=== PATIENT | female | born 2000 | race Caucasian/White ===

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

== ENCOUNTER 2019-09-22 16:18 | Emergency (ER) | payer OTHER ==
[2019-09-22 17:12] VITALS: BP 120/64; PULSE 114; TEMP 98.3; BMI 25.7
--- NOTE | 2019-09-22 17:14 | PDOC ---
Rapid Medical Evaluation Chief Complaint: Headache Time Seen by Provider: 09/22/19 17:05 Medical Evaluation: Allergies Allergy/AdvReac Type Severity Reaction Status Date / Time No Known Allergies Allergy Verified 09/22/19 17:05 09/22/19 17:06 I have performed a brief in-person evaluation of this patient. The patient presents with a chief complaint of:URI and MORENO Pertinent physical exam findings:vss I have ordered the following:nothing The patient will proceed to the ED for further evaluation. Discharge Disposition - Diagnosis URI (upper respiratory infection) Qualifiers: URI type: unspecified viral URI Qualified Code(s): J06.9 - Acute upper respiratory infection, unspecified - Referrals - Patient Instructions - Post Discharge Activity
--- NOTE | 2019-09-22 17:35 | PDOC ---
History of Present Illness - General Chief Complaint: Headache Stated Complaint: HEADACHE Time Seen by Provider: 09/22/19 17:05 - History of Present Illness Initial Comments: 09/22/19 17:34 19-year-old female without comorbidities presents with flulike symptoms x2 days positive contacts at home Past History - Past Medical History Allergies/Adverse Reactions: Allergies Allergy/AdvReac Type Severity Reaction Status Date / Time No Known Allergies Allergy Verified 09/22/19 17:05 Home Medications: Ambulatory Orders One Tablet 1 tablet PO DAILY 04/03/18 Oseltamivir Phosphate [Tamiflu] 75 mg PO BID #10 capsule 09/22/19 Asthma: No Cancer: No Cardiac Disorders: No COPD: No Diabetes: No HTN: No Seizures: No Thyroid Disease: No - Psycho Social/Smoking Cessation Hx Smoking History: Never smoked Have you smoked in the past 12 months: No Information on smoking cessation initiated: No Hx Alcohol Use: No Drug/Substance Use Hx: No Substance Use Type: None Hx Substance Use Treatment: No Review of Systems - Review of Systems Constitutional: Yes: Fever HEENTM: Yes: Nose Congestion Respiratory: Yes: Cough *Physical Exam - Vital Signs Last Vital Signs Temp Pulse Resp BP Pulse Ox 98.3 F 114 H 16 120/64 100 09/22/19 17:05 09/22/19 17:05 09/22/19 17:05 09/22/19 17:05 09/22/19 17:05 - Physical Exam 09/22/19 17:34 GENERAL: The patient is awake, alert, and fully oriented, in no acute distress. HEAD: Normal with no signs of trauma. EYES: sclera anicteric, conjunctiva clear. ENT: Ears normal tympanic membranes normal oropharynx clear uvula midline NECK: Normal range of motion LUNGS: Breath sounds equal, clear to auscultation bilaterally. No wheezes, and no crackles. HEART: S1 and S2 without murmur, rub or gallop. ABDOMEN: Soft, nontender, normoactive bowel sounds. No guarding, no rebound. No masses. EXTREMITIES: Normal range of motion, no edema. No clubbing or cyanosis. No cords, erythema, or tenderness. NEUROLOGICAL: Cranial nerves II through XII grossly intact. PSYCH: Normal mood, normal affect. SKIN: Warm, Dry, normal turgor, no rashes or lesions noted. Medical Decision Making - Medical Decision Making 09/22/19 17:34 We will treat presumptive flu with Tamiflu Discharge - Discharge Information Problems reviewed: Yes Clinical Impression/Diagnosis: Influenza-like illness URI (upper respiratory infection) Qualifiers: URI type: unspecified viral URI Qualified Code(s): J06.9 - Acute upper respiratory infection, unspecified Condition: Stable Disposition: HOME - Admission No - Follow up/Referral Referrals: Gayle Hale MD [Staff Physician] - - Patient Discharge Instructions Additional Instructions: Tylenol Motrin as directed for fever and body aches. Return to the emergency room for worsening symptoms and without fail follow-up with your primary care physician in 1 to 2 days for further evaluation and treatment options. Please take the Tamiflu as directed. - Post Discharge Activity
== END 2019-09-22 17:54 | disposition home or self-care (01) ==
LOC: JERFT 16:18
DX: J11.1 Influenza due to unidentified influenza virus with other respiratory manifestations (principal)
CPT/HCPCS: 99281-25

== ENCOUNTER 2021-07-09 17:30 | Emergency (ER) | payer OTHER ==
[2021-07-09 17:40] VITALS: TEMP 98.8; BMI 25.7
[2021-07-09 20:50] LABS: EPI CELLS 10 /uL (0-25.1); HYALINE CASTS 0 /uL (0-3.1); URINE APPEARANCE CLEAR; URINE BACTERIA 162 /uL (0-1359); URINE BILIRUBIN NEGATIVE (NEGATIVE); URINE COLOR YELLOW; URINE GLUCOSE (UA) NEGATIVE (NEGATIVE); URINE KETONE NEGATIVE (NEGATIVE); URINE LEUK ESTERASE TRACE (NEGATIVE); URINE NITRITE NEGATIVE (NEGATIVE); URINE PROTEIN NEGATIVE (NEGATIVE); URINE RBC 5 /uL (0-23.9); URINE WBC 14 /uL (0-25.8)
[2021-07-09 22:45] VITALS: BP 119/64; PULSE 79
== END 2021-07-09 22:46 | disposition home or self-care (01) ==
LOC: JER 17:30
DX: O26.891 Other specified pregnancy related conditions, first trimester (principal); R10.9 Unspecified abdominal pain; Z3A.01 Less than 8 weeks gestation of pregnancy
CPT/HCPCS: 36415; 76817-TC; 81003; 84702; 87086; 99284-25

== ENCOUNTER 2022-02-14 07:06 | Inpatient (IN) | payer OTHER ==
[2022-02-14] MEDS: ELECTROLYTE-148 SOLN 1,000 ML IV SCH (08:45)
[2022-02-14 09:09] VITALS: BMI 29.8
[2022-02-14 09:17] LABS: BASO % 0.3 % (0-2.0); EOS % 0.6 % (0-4.5); HEMOGLOBIN 12.4 GM/dL (10.7-15.3); LYMPH % 17.7 % (8-40); MCH 33.8 pg (25.7-33.7); MCHC 34.5 g/dl (32.0-36.0); MEAN CELL VOLUME 97.9 fl (80-96); MEAN PLT VOLUME 11.1 fl (7.5-11.1); MONO % 6.6 % (3.8-10.2); NEUT % 74.8 % (42.8-82.8); PLATELET COUNT 125 10^3/uL (134-434); RBC 3.68 M/mm3 (3.60-5.2); RDW 13.3 % (11.6-15.6); WHITE BLOOD COUNT 9.8 K/mm3 (4.0-10.0)
[2022-02-14 09:35] LABS: BLOOD UREA NITROGEN 5.2 mg/dL (7-18); CALCIUM 8.7 mg/dL (8.5-10.1)
[2022-02-14 09:37] LABS: INR 0.92 (0.83-1.09); PROTHROMBIN TIME (PATIENT) 10.6 SEC (9.7-13.0)
[2022-02-14 09:39] LABS: ACTIVATED PTT 27.1 SECONDS (25.2-36.5)
[2022-02-14 09:40] LABS: CREATININE 0.4 mg/dL (0.55-1.3)
[2022-02-14] MEDS ORDERED: OXYTOCIN 20 UNITS in 0.9% NS 20 UNIT/1,000 ML INFUS.BAG IV ONE (10:02)
[2022-02-14] MEDS ORDERED: MISOPROSTOL 200 MCG TABLET ONE (10:41)
[2022-02-14] MEDS ORDERED: WITCH HAZEL 50% (TUCKS) 40 PAD/JAR PAD TP PRN (11:03)
[2022-02-14] MEDS ORDERED: BENZOCAINE 28 GM HEMORRHOIDAL OINTMENT TP PRN (11:03)
[2022-02-14] MEDS ORDERED: BISACODYL 10 MG SUPP.RECT RC PRN (11:03)
[2022-02-14] MEDS ORDERED: BENZOCAINE 20% 57 GM BOTTLE TP PRN (11:03)
[2022-02-14] MEDS ORDERED: ACETAMINOPHEN 325 MG TABLET (FP) PO PRN (11:03)
[2022-02-14] MEDS: IBUPROFEN 600 MG TABLET (FP) PO PRN (11:05)
[2022-02-14] MEDS ORDERED: MISOPROSTOL 100 MCG TABLET PV ONE (11:07)
[2022-02-14] MEDS ORDERED: OXYTOCIN 20 UNITS in 0.9% NS 20 UNIT/1,000 ML INFUS.BAG IV SCH (11:15)
[2022-02-14 11:27] LABS: CORD BASE EXCESS -5.4 mmol/L (0-2); CORD HCO3 19.5 mmHg (20-29); CORD PCO2 36.4 mmHg (30-78); CORD pH 7.346 (7.14-7.44)
[2022-02-14 11:29] LABS: CORD BASE EXCESS -3.6 mmol/L (0-2); CORD HCO3 21.8 mmHg (20-29); CORD PCO2 40.4 mmHg (30-78); CORD pH 7.349 (7.14-7.44)
[2022-02-14] MEDS ORDERED: METHYLERGONOVINE MALEATE 0.2 MG/1 ML AMP IM ONE (13:15)
[2022-02-15] MEDS: IBUPROFEN 600 MG TABLET (FP) PO PRN ×3 (00:21→22:45)
[2022-02-15 09:04] LABS: BASO % 0.4 % (0-2.0); EOS % 0.6 % (0-4.5); HEMATOCRIT 33.9 % (32.4-45.2); HEMOGLOBIN 11.7 GM/dL (10.7-15.3); LYMPH % 19.3 % (8-40); MCH 33.8 pg (25.7-33.7); MCHC 34.6 g/dl (32.0-36.0); MEAN CELL VOLUME 97.7 fl (80-96); MEAN PLT VOLUME 11.9 fl (7.5-11.1); MONO % 6.8 % (3.8-10.2); NEUT % 72.9 % (42.8-82.8); PLATELET COUNT 125 10^3/uL (134-434); RBC 3.47 M/mm3 (3.60-5.2); RDW 13.4 % (11.6-15.6); WHITE BLOOD COUNT 11.5 K/mm3 (4.0-10.0)
[2022-02-15] MEDS ORDERED: DIPHTH,PERTUSS(ACELL),TET 0.5 ML DISP.SYRIN IM ONE (10:00)
[2022-02-15 14:14] VITALS: TEMP 98.3
[2022-02-15] MEDS: ELECTROLYTE-148 SOLN 1,000 ML IV SCH (17:11)
[2022-02-15] MEDS ORDERED: SENNOSIDES/DOCUSATE COMBO (SENNA PLUS) TABLET (UD) PO PRN (22:00)
[2022-02-16 09:16] VITALS: BP 123/81; PULSE 84
== END 2022-02-16 13:45 | disposition home or self-care (01) | DRG 560 ==
LOC: JDEL 07:06 → JLDR 08:10 → J3W 13:00
PROVIDERS: ADMIT Student in an Organized Health Care Education/Training Program; ATTEND Student in an Organized Health Care Education/Training Program
PROC: 10E0XZZ Delivery of Products of Conception, External Approach (ICD-10-PCS; principal; 2022-02-14)
PROC: 0W8NXZZ Division of Female Perineum, External Approach (ICD-10-PCS; 2022-02-14)
PROC: 0HQ9XZZ Repair Perineum Skin, External Approach (ICD-10-PCS; 2022-02-14)
DX: O70.0 First degree perineal laceration during delivery (principal); Z3A.39 39 weeks gestation of pregnancy; Z37.0 Single live birth
CPT/HCPCS: 36415; 36600; 59025; 59409; 80048; 82803; 85025; 85610; 85730; 86780; 86850; 86900; 86901; 90715; C9803-CS; U0003; U0005

== ENCOUNTER 2024-05-20 14:10 | Emergency (ER) | payer OTHER ==
[2024-05-20 14:16] VITALS: BMI 29.2
[2024-05-20 16:18] LABS: BASO % 0.6 % (0-2.0); HEMATOCRIT 42.1 % (32.4-45.2); HEMOGLOBIN 14.3 GM/dL (10.7-15.3); LYMPH % 39.1 % (8-40); MCH 30.8 pg (25.7-33.7); MCHC 33.9 g/dl (32.0-36.0); MEAN PLT VOLUME 9.8 fl (7.5-11.1); MONO % 9.5 % (3.8-10.2); NEUT % 48.8 % (42.8-82.8); PLATELET COUNT 180 10^3/uL (134-434); RBC 4.63 M/mm3 (3.60-5.2); RDW 12.8 % (11.6-15.6)
[2024-05-20 16:20] LABS: EPI CELLS 21 /uL (0-25.1); HYALINE CASTS 0 /uL (0-3.1); URINE APPEARANCE CLEAR; URINE BACTERIA 633 /uL (0-1359); URINE BILIRUBIN NEGATIVE (NEGATIVE); URINE COLOR YELLOW; URINE GLUCOSE (UA) NEGATIVE (NEGATIVE); URINE KETONE NEGATIVE (NEGATIVE); URINE LEUK ESTERASE 2+ (NEGATIVE); URINE NITRITE NEGATIVE (NEGATIVE); URINE PROTEIN NEGATIVE (NEGATIVE); URINE RBC 31 /uL (0-23.9); URINE WBC 198 /uL (0-25.8)
[2024-05-20 16:25] LABS: INR 1.04 (0.83-1.09)
[2024-05-20 16:27] LABS: ACTIVATED PTT 35.6 SECONDS (25.2-36.5)
[2024-05-20 16:30] LABS: HCG,QUALITATIVE URINE Negative
[2024-05-20 17:04] LABS: ALBUMIN 4.1 g/dl (3.4-5.0); BLOOD UREA NITROGEN 5.7 mg/dL (7-18)
[2024-05-20 17:07] LABS: CREATININE 0.5 mg/dL (0.55-1.3)
[2024-05-20 17:09] LABS: BILIRUBIN,TOTAL 0.5 mg/dL (0.2-1); TOT PROT 7.7 g/dl (6.4-8.2)
[2024-05-20 17:31] LABS: HIV INTERPRETATION NEGATIVE (NEGATIVE)
[2024-05-20 20:33] VITALS: BP 110/78; PULSE 77; RESP 19; TEMP 97.9
== END 2024-05-20 20:33 | disposition home or self-care (01) ==
LOC: JER 14:10
DX: N39.0 Urinary tract infection, site not specified (principal); R10.31 Right lower quadrant pain; R19.7 Diarrhea, unspecified
CPT/HCPCS: 36415; 74177-TC; 80053; 81003; 83690; 84703; 85025; 85610; 85730; 86803; 86850; 86900; 86901; 87086; 87389; 99285-25; Q9967